=== PATIENT | male | born 1945 | race Asian ===

== ENCOUNTER 2025-01-09 18:55 | Inpatient (IN) | payer OTHER, MEDICAID ==
[~2025-01-09] VITALS: Ht 160 cm; Wt 40.8 kg
[2025-01-09] MEDS: CEFEPIME 2 GM in IV D5W 50 ML IV ONE (20:10)
[2025-01-09] MEDS ORDERED: VANCOMYCIN 1 GM /D5W 250 ML PB IV ONE (20:11)
[2025-01-09] MEDS ORDERED: CEFEPIME 1 GM VIAL ONE ×2 (20:11→23:43)
[2025-01-09] MEDS: IV NS 0.9% 1,000 ML BAG IV ONE (20:31)
[2025-01-09] MEDS: VANCOMYCIN 1 GM in IV D5W 250 ML IV ONE (20:34)
[2025-01-09 20:39] LABS: CALCIUM, SERUM 8.1 mg/dL (8.5-10.1); CREATININE 0.8 mg/dL (0.6-1.3); POTASSIUM 4.6 mmol/L (3.5-5.1)
[2025-01-09 20:44] LABS: BILIRUBIN,DIRECT 0.1 mg/dL (0.0-0.2); BILIRUBIN,TOTAL 0.2 mg/dL (0.2-1.0); TOTAL PROTEIN, SERUM 7.5 g/dL (6.4-8.2)
[2025-01-09 20:49] LABS: BASOPHILS % (AUTO) 0.6 % (0.0-2.0); EOSINOPHILS # (AUTO) 0.3 K/uL (0.0-0.7); EOSINOPHILS % (AUTO) 3.7 % (0.0-6.0); HEMATOCRIT 21 % (39-51); LYMPHOCYTES # (AUTO) 0.5 K/uL (0.8-4.8); LYMPHOCYTES % (AUTO) 5.4 % (20.0-44.0); MEAN CORPUSCULAR HEMOGLOBIN 32 PG (26.0-33.0); MEAN CORPUSCULAR HGB CONC 33 g/dl (31.0-36.0); MEAN CORPUSCULAR VOLUME 96 fL (80-96); MONOCYTES # (AUTO) 0.6 K/uL (0.1-1.30); MONOCYTES % (AUTO) 6.5 % (2.0-12.0); NEUTROPHILS # (AUTO) 7.2 K/uL (1.8-8.9); NEUTROPHILS % (AUTO) 83.8 % (43.0-81.0); PLATELET COUNT (AUTO) 256 K/uL (150-450); RED BLOOD CELL COUNT(AUTO) 2.15 MIL/uL (4.5-6.0); RED CELL DISTRIBUTION WIDTH 14.9 % (11.5-15.0); WHITE BLOOD COUNT (AUTO) 8.6 K/uL (4.3-11.0)
[2025-01-09 20:52] LABS: ALBUMIN 1.4 g/dL (3.4-5.0); HEMOGLOBIN 6.8 g/dL (13.5-17.5)
[2025-01-09 20:54] LABS: INR 1.1 (0.91-1.10); PARTIAL THROMBOPLASTIN TIME 31.6 SEC (24.3-34.3); PROTHROMBIN TIME 11.6 SECS (9.2-11.1)
[2025-01-09 20:59] LABS: APPEARANCE,URINE SLIGHTLY CLOUDY (CLEAR); BILIRUBIN,URINE NEGATIVE (NEGATIVE); BLOOD, URINE TRACE-INTA Ery/uL (NEGATIVE); COLOR,URINE YELLOW (YELLOW); KETONES,URINE NEGATIVE (NEGATIVE); LEUKOCYTE ESTERASE ,URINE 2+ (NEGATIVE); NITRITE, URINE NEGATIVE (NEGATIVE); PH,URINE 6.5 (5.0-8.0); PROTEIN,URINE NEGATIVE (NEGATIVE); UGLUCOSE 3+ mg/dL (NEGATIVE); UROBILINOGEN,URINE 0.2 EU/dL (0.2)
[2025-01-09 21:08] LABS: ADD URINE CULTURE YES; BACTERIA,URINE Moderate /HPF (None Seen)
[2025-01-09 21:09] LABS: SQUAMOUS EPITHELIAL CELL,UR 0-2 /HPF (None Seen); YEAST,URINE Many /HPF (None Seen)
[2025-01-09 21:23] LABS: ANISOCYTOSIS 1+; EOSINOPHILS % (MANUAL) 2 % (0-4); LYMPHOCYTES % (MANUAL) 5 % (16-48); MONOCYTES % (MANUAL) 4 % (0-11.0); NEUTROPHILS % (MANUAL) 89 (42-76); PLATELET ESTIMATE ADEQUATE
[2025-01-10] VITALS (29 sets, daily range): BP systolic 53–143; BP diastolic 28–80; TEMP 97.7–98.7; O2SAT 96–100
[2025-01-10] MEDS ORDERED: MAGNESIUM HYDROXIDE 30 ML UDC PO PRN (00:30)
[2025-01-10] MEDS: FREE WATER VIA TUBE FEEDING GT SCH (00:30)
[2025-01-10] MEDS ORDERED: INSULIN REGULAR, HUMAN 100 UNIT/ML 3 ML VIAL SQ PRN ×2 (00:30→10:00)
[2025-01-10] MEDS ORDERED: DEXTROSE 50%-WATER 50 ML DISP.SYRIN IV PRN ×3 (00:30→17:30)
[2025-01-10] MEDS ORDERED: ONDANSETRON HCL/PF 4 MG/2 ML VIAL IVP PRN (00:30)
[2025-01-10 01:05] LABS: IRON, SERUM 15 ug/dl (50-175); TOTAL IRON BINDING CAPACITY 119 ug/dl (250-450)
[2025-01-10 01:15] LABS: FERRITIN 603 ng/mL (8-388)
[2025-01-10] MEDS: BLOOD SUGAR DIAGNOSTIC 1 EACH STRIP VI SCH (07:56)
[2025-01-10] MEDS: CEFEPIME 2 GM in IV D5W 100 ML IV SCH (08:00)
[2025-01-10 08:30] LABS: HEMOGLOBIN 9.3 g/dL (13.5-17.5)
[2025-01-10] MEDS: VANCOMYCIN 500 MG in IV D5W 100ml IV SCH (08:54)
[2025-01-10] MEDS: PANTOPRAZOLE 40 MG VIAL IV SCH (10:56)
[2025-01-10 12:58] LABS: BASOPHILS # (AUTO) 0.1 K/uL (0.0-0.2); EOSINOPHILS # (AUTO) 0.1 K/uL (0.0-0.7); EOSINOPHILS % (AUTO) 1.1 % (0.0-6.0); HEMATOCRIT 25 % (39-51); HEMOGLOBIN 8.2 g/dL (13.5-17.5); LYMPHOCYTES # (AUTO) 1.2 K/uL (0.8-4.8); LYMPHOCYTES % (AUTO) 9.1 % (20.0-44.0); MEAN CORPUSCULAR HEMOGLOBIN 30 PG (26.0-33.0); MEAN CORPUSCULAR HGB CONC 33 g/dl (31.0-36.0); MEAN CORPUSCULAR VOLUME 92 fL (80-96); MONOCYTES # (AUTO) 0.7 K/uL (0.1-1.30); MONOCYTES % (AUTO) 5.4 % (2.0-12.0); NEUTROPHILS # (AUTO) 11.3 K/uL (1.8-8.9); NEUTROPHILS % (AUTO) 83.4 % (43.0-81.0); PLATELET COUNT (AUTO) 401 K/uL (150-450); RED BLOOD CELL COUNT(AUTO) 2.73 MIL/uL (4.5-6.0); RED CELL DISTRIBUTION WIDTH 17.8 % (11.5-15.0); WHITE BLOOD COUNT (AUTO) 13.5 K/uL (4.3-11.0)
[2025-01-10 13:20] LABS: INR 1.17 (0.91-1.10); PARTIAL THROMBOPLASTIN TIME 30.3 SEC (24.3-34.3); PROTHROMBIN TIME 12.3 SECS (9.2-11.1)
[2025-01-10] MEDS: BLOOD SUGAR DIAGNOSTIC 1 EACH STRIP IN SCH ×2 (13:38→17:34)
[2025-01-10] MEDS ORDERED: NOREPINEPHRINE 8 MG in IV D5W 242 ML IV PRN (14:00)
[2025-01-10] MEDS: IV D5/ 0.9% NACL 1,000 ML IV PRN (14:43)
[2025-01-10] MEDS: PROPOFOL 100 ML IV PRN (15:14)
[2025-01-10] MEDS: PHENYLEPHRINE 50 MG in IV NS 0.9% 245 ML IV PRN (16:32)
[2025-01-10] MEDS: INSULIN REGULAR, HUMAN 100 UNIT/ML 3 ML VIAL SQ PRN (17:34)
[2025-01-10] MEDS: IV NS 0.9% 250 ML IV PRN (20:31)
[2025-01-10] MEDS: MEROPENEM 1 G in IV NS 0.9% 100 ML IV SCH (20:31)
[2025-01-10 21:57] LABS: MEAN CORPUSCULAR HEMOGLOBIN 30 PG (26.0-33.0); MEAN CORPUSCULAR HGB CONC 32 g/dl (31.0-36.0); MEAN CORPUSCULAR VOLUME 93 fL (80-96); PLATELET COUNT (AUTO) 340 K/uL (150-450); RED BLOOD CELL COUNT(AUTO) 2.02 MIL/uL (4.5-6.0); RED CELL DISTRIBUTION WIDTH 17.7 % (11.5-15.0); WHITE BLOOD COUNT (AUTO) 15.2 K/uL (4.3-11.0)
[2025-01-10 22:19] LABS: HEMATOCRIT 19 % (39-51); HEMOGLOBIN 6.1 g/dL (13.5-17.5)
[2025-01-11] VITALS (97 sets, daily range): BP systolic 80–113; BP diastolic 49–81; TEMP 97.2–98.2; O2SAT 94–100
[2025-01-11 02:32] LABS: OCCULT BLOOD STOOL POSITIVE (NEGATIVE)
[2025-01-11 07:15] LABS: BASOPHILS # (AUTO) 0.1 K/uL (0.0-0.2); BASOPHILS % (AUTO) 0.4 % (0.0-2.0); EOSINOPHILS # (AUTO) 0.1 K/uL (0.0-0.7); EOSINOPHILS % (AUTO) 0.6 % (0.0-6.0); HEMATOCRIT 26 % (39-51); HEMOGLOBIN 8.3 g/dL (13.5-17.5); LYMPHOCYTES # (AUTO) 1.1 K/uL (0.8-4.8); LYMPHOCYTES % (AUTO) 7.8 % (20.0-44.0); MEAN CORPUSCULAR HEMOGLOBIN 29 PG (26.0-33.0); MEAN CORPUSCULAR HGB CONC 32 g/dl (31.0-36.0); MEAN CORPUSCULAR VOLUME 90 fL (80-96); MONOCYTES # (AUTO) 0.8 K/uL (0.1-1.30); MONOCYTES % (AUTO) 5.3 % (2.0-12.0); NEUTROPHILS # (AUTO) 12.3 K/uL (1.8-8.9); NEUTROPHILS % (AUTO) 85.9 % (43.0-81.0); PLATELET COUNT (AUTO) 414 K/uL (150-450); RED BLOOD CELL COUNT(AUTO) 2.85 MIL/uL (4.5-6.0); RED CELL DISTRIBUTION WIDTH 15.8 % (11.5-15.0); WHITE BLOOD COUNT (AUTO) 14.4 K/uL (4.3-11.0)
[2025-01-11 07:41] LABS: CALCIUM, SERUM 7.8 mg/dL (8.5-10.1); CREATININE 1.1 mg/dL (0.6-1.3); MAGNESIUM 2.8 mg/dL (1.8-2.4); PHOSPHORUS 3.4 mg/dL (2.5-4.9); POTASSIUM 4.2 mmol/L (3.5-5.1)
[2025-01-11] MEDS ORDERED: GLIP5TAB13 GT (10:23)
[2025-01-11] MEDS ORDERED: BISA10SU11 RC (10:23)
[2025-01-11] MEDS ORDERED: LEVA0.6320 NEB (10:23)
[2025-01-11] MEDS ORDERED: MIDO10TA GT (10:23)
[2025-01-11] MEDS ORDERED: SENN-261 GT (10:23)
[2025-01-11] MEDS ORDERED: CARV3.122 GT (10:23)
[2025-01-11] MEDS ORDERED: ACET-73 GT (10:23)
[2025-01-11] MEDS ORDERED: GABA-532 GT (10:23)
[2025-01-11] MEDS ORDERED: ASCO500T10 GT (10:23)
[2025-01-11] MEDS ORDERED: CHLO473M5 MM (10:23)
[2025-01-11] MEDS ORDERED: NUT.237L30 GT (10:23)
[2025-01-11] MEDS ORDERED: DAPA10TA GT (10:23)
[2025-01-11] MEDS ORDERED: FURO20TA4 GT (10:23)
[2025-01-11] MEDS ORDERED: ACET325T53 GT ×3 (10:23)
[2025-01-11] MEDS ORDERED: NA P133E RC (10:23)
[2025-01-11] MEDS ORDERED: COLL30OI TP (10:23)
[2025-01-11] MEDS ORDERED: FERR325T24 GT (10:23)
[2025-01-11] MEDS ORDERED: ATOR20TA GT (10:23)
[2025-01-11] MEDS ORDERED: ASPI-1169 GT (10:23)
[2025-01-11] MEDS ORDERED: ZINC50TA69 GT (10:23)
[2025-01-11] MEDS ORDERED: ONDA-97 GT (10:23)
[2025-01-11] MEDS ORDERED: QUET100T GT (10:23)
[2025-01-11] MEDS ORDERED: INSU100V3 SQ (10:23)
[2025-01-11] MEDS ORDERED: LOPE2CAP14 GT (10:23)
[2025-01-11] MEDS ORDERED: OMEP20CA15 GT (10:23)
[2025-01-11] MEDS ORDERED: DOCU100C36 GT (10:23)
[2025-01-11] MEDS ORDERED: NITR0.4T48 SL (10:23)
[2025-01-11] MEDS ORDERED: MULT-594 GT (10:23)
[2025-01-11] MEDS: HYDROCORTISONE SOD SUCCINATE 100 MG/2 ML VIAL IV SCH (10:36)
[2025-01-11] MEDS: *INSULIN REGULAR(HUMULIN R)HUM 100 UNIT/ML VIAL SQ PRN (11:41)
[2025-01-11 14:42] LABS: HIV-1 p24 ANTIGEN NON REACTIVE (NONREACTIVE); HIV-1/2 ANTIBODY NON REACTIVE (NONREACTIVE)
[2025-01-11] MEDS: GLUCERNA 1.2 1,000 ML BOTTLE NG PRN (16:56)
[2025-01-12] VITALS (80 sets, daily range): BP systolic 89–130; BP diastolic 53–88; TEMP 96.9–98.8; O2SAT 98–100
[2025-01-12 05:45] LABS: BASOPHILS % (AUTO) 0.1 % (0.0-2.0); HEMATOCRIT 30 % (39-51); HEMOGLOBIN 9.7 g/dL (13.5-17.5); LYMPHOCYTES # (AUTO) 0.6 K/uL (0.8-4.8); LYMPHOCYTES % (AUTO) 2.6 % (20.0-44.0); MEAN CORPUSCULAR HEMOGLOBIN 29 PG (26.0-33.0); MEAN CORPUSCULAR HGB CONC 32 g/dl (31.0-36.0); MEAN CORPUSCULAR VOLUME 91 fL (80-96); MONOCYTES # (AUTO) 0.5 K/uL (0.1-1.30); MONOCYTES % (AUTO) 2.1 % (2.0-12.0); NEUTROPHILS # (AUTO) 22.9 K/uL (1.8-8.9); NEUTROPHILS % (AUTO) 95.2 % (43.0-81.0); PLATELET COUNT (AUTO) 548 K/uL (150-450); RED BLOOD CELL COUNT(AUTO) 3.32 MIL/uL (4.5-6.0); RED CELL DISTRIBUTION WIDTH 16.8 % (11.5-15.0)
[2025-01-12 06:28] LABS: CREATININE 0.8 mg/dL (0.6-1.3); POTASSIUM 3.9 mmol/L (3.5-5.1)
[2025-01-12] MEDS: PANTOPRAZOLE 40 MG/PACK PACK GT SCH (08:45)
[2025-01-12] MEDS: DAKINS QUARTER STRENGTH (0.125%) 480 ML BOTTLE TOP SCH (09:17)
[2025-01-12 09:48] LABS: ABG BASE EXCESS -5.3 mmol/L (-2.0-3.0); ABG PH 7.407 (7.350-7.450); ABG PO2 115.7 mmHg (83.0-108.0); ABG TOTAL HEMOGLOBIN 10.4 G/dL (13.5-17.5); COHb 0.3 % (0.5-1.5); O2Hb 97.7 % (94.0-97.0); SITE, ABG LEFT BRACHIAL; VT, ABG 400 mL
[2025-01-12] MEDS: ARGININE/GLUTAMINE/CALCIUM BMB 1 EACH POWD.PACK GT SCH (12:25)
[2025-01-12 13:00] LABS: THYROID STIMULATING HORMONE 9.22 uIU/mL (0.358-3.74)
[2025-01-13] VITALS (22 sets, daily range): BP systolic 94–133; BP diastolic 48–77; TEMP 97.7–99.9; O2SAT 99–100
[2025-01-13] MEDS: GLUCERNA 1.2 1,000 ML BOTTLE NG PRN (03:00)
[2025-01-13 04:48] LABS: BASOPHILS % (AUTO) 0.1 % (0.0-2.0); HEMATOCRIT 27 % (39-51); HEMOGLOBIN 8.7 g/dL (13.5-17.5); LYMPHOCYTES # (AUTO) 0.6 K/uL (0.8-4.8); LYMPHOCYTES % (AUTO) 2.8 % (20.0-44.0); MEAN CORPUSCULAR HEMOGLOBIN 30 PG (26.0-33.0); MEAN CORPUSCULAR HGB CONC 32 g/dl (31.0-36.0); MEAN CORPUSCULAR VOLUME 92 fL (80-96); MONOCYTES # (AUTO) 0.7 K/uL (0.1-1.30); MONOCYTES % (AUTO) 3.2 % (2.0-12.0); NEUTROPHILS # (AUTO) 19.2 K/uL (1.8-8.9); NEUTROPHILS % (AUTO) 93.9 % (43.0-81.0); PLATELET COUNT (AUTO) 402 K/uL (150-450); RED BLOOD CELL COUNT(AUTO) 2.95 MIL/uL (4.5-6.0); RED CELL DISTRIBUTION WIDTH 16.6 % (11.5-15.0); WHITE BLOOD COUNT (AUTO) 20.5 K/uL (4.3-11.0)
[2025-01-13 05:02] LABS: CALCIUM, SERUM 8.2 mg/dL (8.5-10.1); CREATININE 0.8 mg/dL (0.6-1.3); POTASSIUM 4.3 mmol/L (3.5-5.1)
[2025-01-13 08:13] LABS: FOLIC ACID 18.5 ng/mL (>3.0)
[2025-01-13] MEDS: VANCOMYCIN 750 MG in IV D5W 250 ML IV SCH (09:16)
[2025-01-13] MEDS: ACETAMINOPHEN 325 MG TABLET PO PRN (12:22)
[2025-01-13] MEDS ORDERED: NA PHOS,M-B/NA PHOS,DI-BA 1 EA ENEMA RC PRN (14:00)
[2025-01-13] MEDS ORDERED: LOPERAMIDE HCL (2 MG CAP) 2 MG CAPSULE GT PRN (14:00)
[2025-01-13] MEDS ORDERED: MIDODRINE HCL (5MG) 5 MG TABLET PO PRN (14:00)
[2025-01-13] MEDS ORDERED: ACETAMINOPHEN ES 500 MG TABLET GT PRN (14:00)
[2025-01-13] MEDS ORDERED: BISACODYL SUPP (10 MG) 10 MG/SUPP.RECT SUPP.RECT RC PRN (14:00)
[2025-01-13] MEDS ORDERED: ACETAMINOPHEN 325 MG TABLET MC PRN ×2 (14:00)
[2025-01-13] MEDS: CHLORHEXIDINE GLUCONATE 15 ML UDC MM SCH (16:40)
[2025-01-13] MEDS: FERROUS SULFATE (325 MG) 325 MG/TAB TABLET GT SCH (16:41)
[2025-01-13] MEDS: GABAPENTIN 100 MG CAPSULE GT SCH (16:41)
[2025-01-13] MEDS: CARVEDILOL 3.125 MG TABLET GT SCH (16:48)
[2025-01-13] MEDS: glipiZIDE 5 MG TABLET GT SCH (16:48)
[2025-01-13] MEDS: ACETAMINOPHEN 325 MG TABLET MC SCH (17:28)
[2025-01-13] MEDS: ATORVASTATIN 10 MG TABLET GT SCH (21:16)
[2025-01-13] MEDS: QUETIAPINE FUMARATE 100 MG TABLET GT SCH (21:17)
[2025-01-13] MEDS: SENNOSIDES 8.6 MG TABLET GT SCH (21:17)
[2025-01-14] VITALS: BP 94/53; TEMP 99.3; O2SAT 99
[2025-01-14 04:00] VITALS: BP 103/55; TEMP 99.1; O2SAT 100
[2025-01-14 07:47] LABS: CALCIUM, SERUM 7.9 mg/dL (8.5-10.1); CREATININE 0.8 mg/dL (0.6-1.3); POTASSIUM 4.2 mmol/L (3.5-5.1)
[2025-01-14 08:00] VITALS: BP 106/58; TEMP 97.5; O2SAT 96
[2025-01-14] MEDS: ASCORBIC ACID 500 MG TABLET GT SCH (08:28)
[2025-01-14] MEDS: ZINC SULFATE 220 MG CAPSULE GT SCH (08:29)
[2025-01-14] MEDS: ASPIRIN 81 MG TAB.CHEW GT SCH (08:29)
[2025-01-14] MEDS: DOCUSATE SODIUM 100 MG CAPSULE PO SCH (08:30)
[2025-01-14] MEDS: THERAHONEY GEL 1.5 OZ TUBE TP SCH (08:31)
[2025-01-14] MEDS ORDERED: MULTIVITAMIN LIQ 5 ML UDC GT SCH (09:00)
[2025-01-14] MEDS: MULTIVIT W/MINERALS 1 TAB TABLET GT SCH (09:04)
[2025-01-14] MEDS: DAPAGLIFLOZIN PROPANEDIOL 10 MG TABLET GT SCH (09:24)
[2025-01-14 12:00] VITALS: BP 109/57; TEMP 97.7; O2SAT 98
[2025-01-14 16:00] VITALS: BP 101/62; TEMP 97.8; O2SAT 94
[2025-01-14 20:00] VITALS: BP 113/65; TEMP 97.5; O2SAT 99
[2025-01-15] VITALS: BP 112/64; TEMP 97.3; O2SAT 95
[2025-01-15 04:00] VITALS: BP 101/59; TEMP 97.3; O2SAT 98
[2025-01-15 07:08] LABS: CALCIUM, SERUM 7.9 mg/dL (8.5-10.1); CREATININE 0.8 mg/dL (0.6-1.3); POTASSIUM 3.8 mmol/L (3.5-5.1)
[2025-01-15 08:00] VITALS: BP 93/61; TEMP 97.3; O2SAT 100
[2025-01-15] MEDS: HYDROCORTISONE SOD SUCCINATE 100 MG/2 ML VIAL IV SCH (11:59)
[2025-01-15 12:00] VITALS: BP 107/58; TEMP 97.2; O2SAT 100
[2025-01-15 16:00] VITALS: BP 99/67; TEMP 97.2; O2SAT 100
[2025-01-15 20:00] VITALS: BP 105/69; TEMP 97.3; O2SAT 100
[2025-01-16] VITALS: BP 101/60; TEMP 97.3; O2SAT 100
[2025-01-16 04:00] VITALS: BP 121/71; TEMP 97; O2SAT 100
[2025-01-16 06:31] LABS: CREATININE 0.8 mg/dL (0.6-1.3)
[2025-01-16 08:00] VITALS: BP 114/72; TEMP 97.5; O2SAT 100
[2025-01-16 12:00] VITALS: BP 105/57; TEMP 97.7; O2SAT 100
[2025-01-16 16:00] VITALS: BP 106/66; TEMP 97.3; O2SAT 100
[2025-01-16 20:00] VITALS: BP 95/53; TEMP 97.3; O2SAT 100
[2025-01-16 20:09] LABS: VITAMIN B1 THIAMINE,WB 186.6 nmol/L (66.5-200.0)
[2025-01-16] MEDS: CEFEPIME 2 GM in IV D5W 100 ML IV SCH (20:48)
[2025-01-17] VITALS: BP 106/63; TEMP 97.3; O2SAT 100
[2025-01-17 04:00] VITALS: BP 108/66; TEMP 97.3; O2SAT 100
[2025-01-17 07:48] LABS: CREATININE 0.6 mg/dL (0.6-1.3); POTASSIUM 3.6 mmol/L (3.5-5.1)
[2025-01-17 08:00] VITALS: BP 117/74; TEMP 97.8; O2SAT 100
[2025-01-17 12:00] VITALS: BP 111/64; TEMP 97.6; O2SAT 100
[2025-01-17 16:00] VITALS: BP 108/58; TEMP 97.9; O2SAT 100
[2025-01-17 20:00] VITALS: BP 102/86; TEMP 97.9; O2SAT 100
[2025-01-18] VITALS: BP 136/61; TEMP 97.7; O2SAT 100
[2025-01-18 04:00] VITALS: BP 116/97; TEMP 97.9; O2SAT 100
[2025-01-18 07:42] LABS: CALCIUM, SERUM 8.3 mg/dL (8.5-10.1); CREATININE 0.7 mg/dL (0.6-1.3); POTASSIUM 3.7 mmol/L (3.5-5.1)
[2025-01-18 08:00] VITALS: BP 116/80; TEMP 97.5; O2SAT 100
[2025-01-18 12:00] VITALS: BP 125/71; TEMP 97.4; O2SAT 100
[2025-01-18 16:00] VITALS: BP 128/80; TEMP 98.1; O2SAT 100
[2025-01-18 20:00] VITALS: BP 100/58; TEMP 97.5; O2SAT 100
[2025-01-19] VITALS: BP 99/57; TEMP 97.3; O2SAT 100
[2025-01-19 04:00] VITALS: BP 99/62; TEMP 97.3; O2SAT 99
[2025-01-19 06:56] LABS: CALCIUM, SERUM 8.1 mg/dL (8.5-10.1); CREATININE 0.6 mg/dL (0.6-1.3); POTASSIUM 3.6 mmol/L (3.5-5.1)
[2025-01-19 07:06] LABS: HEMATOCRIT 34 % (39-51); HEMOGLOBIN 10.5 g/dL (13.5-17.5); LYMPHOCYTES # (AUTO) 0.6 K/uL (0.8-4.8); MEAN CORPUSCULAR HEMOGLOBIN 31 PG (26.0-33.0); MEAN CORPUSCULAR HGB CONC 31 g/dl (31.0-36.0); MEAN CORPUSCULAR VOLUME 101 fL (80-96); MONOCYTES # (AUTO) 0.3 K/uL (0.1-1.30); MONOCYTES % (AUTO) 3.4 % (2.0-12.0); NEUTROPHILS # (AUTO) 8.6 K/uL (1.8-8.9); NEUTROPHILS % (AUTO) 90.6 % (43.0-81.0); PLATELET COUNT (AUTO) 232 K/uL (150-450); RED BLOOD CELL COUNT(AUTO) 3.39 MIL/uL (4.5-6.0); RED CELL DISTRIBUTION WIDTH 20.3 % (11.5-15.0); WHITE BLOOD COUNT (AUTO) 9.5 K/uL (4.3-11.0)
[2025-01-19 08:00] VITALS: BP 124/72; TEMP 98.1; O2SAT 100
[2025-01-19 12:00] VITALS: BP 116/68; TEMP 97.2; O2SAT 100
[2025-01-19 16:00] VITALS: BP 95/55; TEMP 97.2; O2SAT 100
[2025-01-19 20:00] VITALS: BP 115/45; TEMP 97.7; O2SAT 100
[2025-01-19] MEDS: HYDROCORTISONE SOD SUCCINATE 100 MG/2 ML VIAL IV SCH (21:19)
[2025-01-20] VITALS: BP 92/59; TEMP 97.7; O2SAT 100
[2025-01-20 04:00] VITALS: BP 120/70; TEMP 97.3; O2SAT 100
[2025-01-20 07:29] LABS: BASOPHILS % (AUTO) 0.3 % (0.0-2.0); HEMATOCRIT 32 % (39-51); HEMOGLOBIN 9.7 g/dL (13.5-17.5); LYMPHOCYTES # (AUTO) 0.7 K/uL (0.8-4.8); LYMPHOCYTES % (AUTO) 5.4 % (20.0-44.0); MEAN CORPUSCULAR HEMOGLOBIN 31 PG (26.0-33.0); MEAN CORPUSCULAR HGB CONC 31 g/dl (31.0-36.0); MEAN CORPUSCULAR VOLUME 102 fL (80-96); MONOCYTES # (AUTO) 0.4 K/uL (0.1-1.30); MONOCYTES % (AUTO) 3.2 % (2.0-12.0); NEUTROPHILS # (AUTO) 11.1 K/uL (1.8-8.9); NEUTROPHILS % (AUTO) 91.1 % (43.0-81.0); PLATELET COUNT (AUTO) 220 K/uL (150-450); RED BLOOD CELL COUNT(AUTO) 3.09 MIL/uL (4.5-6.0); RED CELL DISTRIBUTION WIDTH 21.5 % (11.5-15.0); WHITE BLOOD COUNT (AUTO) 12.2 K/uL (4.3-11.0)
[2025-01-20 08:00] VITALS: BP 118/63; TEMP 97.7; O2SAT 100
[2025-01-20 08:34] LABS: CALCIUM, SERUM 8.1 mg/dL (8.5-10.1); CREATININE 0.7 mg/dL (0.6-1.3); POTASSIUM 3.6 mmol/L (3.5-5.1)
[2025-01-20] MEDS: LIDOCAINE 2%-EPI 1:100,000 30 ML VIAL TP ONE (10:26)
[2025-01-20] MEDS ORDERED: CEFE2FRO IV (11:24)
[2025-01-20] MEDS ORDERED: VANC750F2 IV (11:24)
[2025-01-20 12:52] VITALS: BP 121/60; TEMP 97.7; O2SAT 100
[2025-01-21] MEDS ORDERED: HYDROCORTISONE SOD SUCCINATE 100 MG/2 ML VIAL IV SCH (09:00)
== END 2025-01-20 17:35 | DRG 870 ==
LOC: ER 19:25 → ICUOV 23:11 → TELE1 01-10 01:12 → ICU 01-10 14:19 → TELE1 01-13 18:51
PROVIDERS: ADMIT Nurse Practitioner Family; ATTEND Internal Medicine
PROC: 5A1955Z Respiratory Ventilation, Greater than 96 Consecutive Hours (ICD-10-PCS; principal; 2025-01-09)
PROC: 30233N1 Transfusion of Nonautologous Red Blood Cells into Peripheral Vein, Percutaneous Approach (ICD-10-PCS; 2025-01-10)
PROC: 02HV33Z Insertion of Infusion Device into Superior Vena Cava, Percutaneous Approach (ICD-10-PCS; 2025-01-10)
PROC: B548ZZA Ultrasonography of Superior Vena Cava, Guidance (ICD-10-PCS; 2025-01-10)
PROC: 2Y41X5Z Packing of Nasal Region using Packing Material (ICD-10-PCS; 2025-01-11)
DX: A41.9 Sepsis, unspecified organism (principal); G93.41 Metabolic encephalopathy; J96.20 Acute and chronic respiratory failure, unspecified whether with hypoxia or hypercapnia; R65.21 Severe sepsis with septic shock; E43 Unspecified severe protein-calorie malnutrition; J15.69 Pneumonia due to other Gram-negative bacteria; N39.0 Urinary tract infection, site not specified; D68.59 Other primary thrombophilia; E27.40 Unspecified adrenocortical insufficiency; R64 Cachexia; Z99.11 Dependence on respirator [ventilator] status; N17.9 Acute kidney failure, unspecified; I42.9 Cardiomyopathy, unspecified; Z68.1 Body mass index [BMI] 19.9 or less, adult; E11.52 Type 2 diabetes mellitus with diabetic peripheral angiopathy with gangrene; L03.116 Cellulitis of left lower limb; L03.115 Cellulitis of right lower limb; M86.171 Other acute osteomyelitis, right ankle and foot; M86.172 Other acute osteomyelitis, left ankle and foot; I13.0 Hypertensive heart and chronic kidney disease with heart failure and stage 1 through stage 4 chronic kidney disease, or unspecified chronic kidney disease; B95.62 Methicillin resistant Staphylococcus aureus infection as the cause of diseases classified elsewhere; D50.9 Iron deficiency anemia, unspecified; E11.22 Type 2 diabetes mellitus with diabetic chronic kidney disease; E11.40 Type 2 diabetes mellitus with diabetic neuropathy, unspecified; E11.65 Type 2 diabetes mellitus with hyperglycemia; E78.5 Hyperlipidemia, unspecified; E83.51 Hypocalcemia; E86.0 Dehydration; E88.09 Other disorders of plasma-protein metabolism, not elsewhere classified; I25.10 Atherosclerotic heart disease of native coronary artery without angina pectoris; R62.7 Adult failure to thrive; Z66 Do not resuscitate; Z93.0 Tracheostomy status; Z93.1 Gastrostomy status; Z95.0 Presence of cardiac pacemaker; Z74.01 Bed confinement status; Z86.73 Personal history of transient ischemic attack (TIA), and cerebral infarction without residual deficits; R13.10 Dysphagia, unspecified; N18.9 Chronic kidney disease, unspecified; H70.93 Unspecified mastoiditis, bilateral; I25.2 Old myocardial infarction; R04.0 Epistaxis; I95.9 Hypotension, unspecified; E11.621 Type 2 diabetes mellitus with foot ulcer; E11.69 Type 2 diabetes mellitus with other specified complication; Z74.09 Other reduced mobility; L89.150 Pressure ulcer of sacral region, unstageable; L89.620 Pressure ulcer of left heel, unstageable; L97.514 Non-pressure chronic ulcer of other part of right foot with necrosis of bone; L97.524 Non-pressure chronic ulcer of other part of left foot with necrosis of bone; Z79.4 Long term (current) use of insulin; Z79.84 Long term (current) use of oral hypoglycemic drugs; I50.9 Heart failure, unspecified
CPT/HCPCS: 31720; 36410; 36415; 70450-TC; 71045-TC; 71250-TC; 73630-TC; 80048-TC; 80061-TC; 80076-TC; 80202-TC; 81001; 82272-TC; 82533; 82607-TC; 82728-TC; 82962-TC; 83540-TC; 83605-TC; 83735-TC; 83921; 84100-TC; 84425; 84443-TC; 84478-TC; 85025-TC; 85027-TC; 85610-TC; 85730-TC; 86803; 86850-TC; 87040-TC; 87081-TC; 87086-TC; 87806; 94002-TC; 94003-TC; 94760-TC; 94762-TC; 94799-TC; A4223; A4623; A6213; A6403; A7526; G0378; J0692; J1720; J1815; J2185; J2470; J3370; J3371; J3490; J7030; J7040; J7042; J7050; J7060; P9016